=== PATIENT | male | born 1990 | race Caucasian/White ===

== ENCOUNTER 2022-10-08 06:53 | Emergency (ER) | payer SELFPAY ==
[~2022-10-08] VITALS: Ht 185.4 cm; Wt 99.8 kg
[2022-10-08] MEDS ORDERED: PHENYLEPHRINE HCL 1% 10 MG/ML VIAL ONE (07:20)
[2022-10-08] MEDS ORDERED: LIDOCAINE HCL 1% LOCAL INJ 20 ML VIAL ONE (07:23)
[2022-10-08] MEDS ORDERED: KETOROLAC TROMETHAMINE 60 MG/2 ML VIAL ONE (08:01)
[2022-10-08 08:16] VITALS: BP 148/74
[2022-10-08] MEDS ORDERED: LIDOCAINE HCL 1% LOCAL INJ 20 ML VIAL INJ ONE (08:30)
[2022-10-08] MEDS ORDERED: KETOROLAC TROMETHAMINE 60 MG/2 ML VIAL IM ONE (08:30)
[2022-10-08] MEDS ORDERED: PHENYLEPHRINE 10MG/ML VIAL 40 MG in DEXTROSE 5% 250ML 250 ML IV STA (09:11)
[2022-10-08] MEDS ORDERED: PHENYLEPHRINE 0.1 MG/ML SYR IV ONE (09:30)
== END 2022-10-08 08:16 | disposition home or self-care (01) ==
LOC: FSED 07:58
DX: N48.30 Priapism, unspecified (principal)
CPT/HCPCS: 99284; J1885; J2001; J2370